=== PATIENT | male | born 1990 | race Hispanic/Latino ===

== ENCOUNTER 2017-09-19 06:24 | Emergency (ER) | payer SELFPAY ==
[2017-09-19] MEDS ORDERED: Adacel (T-DAP) 0.5 ML VIAL ONE (06:38)
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
== END 2017-09-19 08:37 | disposition home or self-care (01) ==
LOC: ERS 06:24
DX: S01.91XA Laceration without foreign body of unspecified part of head, initial encounter (principal); F10.129 Alcohol abuse with intoxication, unspecified; W20.8XXA Other cause of strike by thrown, projected or falling object, initial encounter
CPT/HCPCS: 12001; 70450; 72125; 90471; 90715

== ENCOUNTER 2017-09-26 10:36 | Emergency (ER) | payer SELFPAY | END 2017-09-26 10:58 | disposition home or self-care (01) | LOC: ERS 10:36 | DX: S01.01XD Laceration without foreign body of scalp, subsequent encounter (principal); F17.210 Nicotine dependence, cigarettes, uncomplicated ==